=== PATIENT | female | born 1950 | race Caucasian/White ===

== ENCOUNTER → 2018-12-27 | Outpatient (CLI) | payer MEDICARE ==
[~2018-12-27] MED LIST: ASCO500T8 PO; ASPI-650 PO; LEVO88TA4 PO; METO10TA2 PO; OMEP-110 PO; SILYMARIN PO; TRAM50TA2 PO; VITAMIN D3
== END | disposition home or self-care (01) ==
LOC: STAR 09:41
PROVIDERS: ATTEND Thoracic Surgery (Cardiothoracic Vascular Surgery)
DX: Z01.818 Encounter for other preprocedural examination (principal)
CPT/HCPCS: 93005

== ENCOUNTER 2019-01-02 12:16 | Inpatient (IN) | payer MEDICARE ==
[~2019-01-02] VITALS: Ht 152.4 cm; Wt 86.5 kg
[~2019-01-02 12:16] MED LIST changes: +BUPIVACAINE/PF-EPI 0.5% 1:200K ONE
[2019-01-02] MEDS ORDERED: LACTATED RINGERS 1,000 ML IV SCH (12:44)
[2019-01-02] MEDS ORDERED: ROCURONIUM 10MG/ML,5ML ONE (13:40)
[2019-01-02] MEDS ORDERED: CEFAZOLIN 1,000 MG ONE (13:40)
[2019-01-02] MEDS ORDERED: ONDANSETRON 2MG/ML, 2ML ONE (13:40)
[2019-01-02] MEDS ORDERED: MIDAZOLAM 1 MG/ML, 2ML ONE (13:40)
[2019-01-02] MEDS ORDERED: NEOSTIGMINE 1 MG/ML, 10ML ONE (13:40)
[2019-01-02] MEDS ORDERED: PROPOFOL 10 MG/ML, 20ML ONE (13:40)
[2019-01-02] MEDS ORDERED: FENTANYL PF 250 MCG/5ML ONE (13:40)
[2019-01-02] MEDS ORDERED: SUCCINYLCHOLINE 20 MG/ML, 10ML ONE (13:40)
[2019-01-02] MEDS ORDERED: DEXAMETHASONE 4 MG/ML, 1ML ONE (13:40)
[2019-01-02] MEDS ORDERED: GLYCOPYRROLATE 0.2MG/1ML, 5ML ONE (14:35)
[2019-01-02] MEDS ORDERED: hydrALAzine 20 MG/ML, 1ML ONE (14:56)
[2019-01-02] MEDS ORDERED: LABETALOL 5MG/ML, 20ML IV PRN (15:00)
[2019-01-02] MEDS ORDERED: LORazepam 2 MG/ML, 1ML IVPush PRN (15:00)
[2019-01-02] MEDS ORDERED: FENTANYL PF 100 MCG/2ML IV PRN (15:00)
[2019-01-02] MEDS ORDERED: PROMETHAZINE 25 MG/ML, 1ML IV PRN (15:00)
[2019-01-02] MEDS ORDERED: ONDANSETRON ODT 8 MG PO PRN (15:00)
[2019-01-02] MEDS ORDERED: OXYcodone 5 MG/5 ML ORAL.SOL UDC PO PRN (15:00)
[2019-01-02] MEDS ORDERED: hydrALAzine 20 MG/ML, 1ML IV PRN ×2 (15:00→16:00)
[2019-01-02] MEDS ORDERED: MEPERIDINE/PF 25MG/0.5ML IVPush PRN (15:00)
[2019-01-02] MEDS ORDERED: ACETAMINOPHEN 325 MG TABLET PO PRN (15:00)
[2019-01-02] MEDS ORDERED: ONDANSETRON 2MG/ML, 2ML IV PRN (15:00)
[2019-01-02] MEDS ORDERED: OXYcodone 5 MG/5 ML ORAL.SOL UDC ONE (15:40)
[2019-01-02] MEDS ORDERED: FENTANYL PF 100 MCG/2ML ONE (15:40)
[2019-01-02] MEDS: HYDROmorphone 2 MG/ML, 1ML IVPush PRN ×2 (15:44→16:06)
[2019-01-02] MEDS ORDERED: morphine SULFATE 10 MG/ML, 1ML IV PRN (16:00)
[2019-01-02] MEDS ORDERED: DIPHENHYDRAMINE 25 MG CAPSULE PO PRN (16:00)
[2019-01-02] MEDS ORDERED: ONDANSETRON 2MG/ML, 2ML IVPush PRN (16:00)
[2019-01-02] MEDS ORDERED: ENALAPRILAT 1.25 MG/ML, 2ML IV PRN (16:00)
[2019-01-02] MEDS ORDERED: HYDROcodone/APAP 5/325 TABLET PO PRN (16:00)
[2019-01-02] MEDS ORDERED: DIPHENHYDRAMINE 50 MG/ML, 1ML IV PRN (16:00)
[2019-01-02] MEDS ORDERED: LORazepam 1MG TABLET PO PRN (16:00)
[2019-01-02] MEDS ORDERED: PROMETHAZINE 12.5 MG SUPP PR PRN (16:00)
[2019-01-02] MEDS ORDERED: PROMETHAZINE 25 MG/ML, 1ML IM PRN (16:00)
[2019-01-02] MEDS ORDERED: LORazepam 2 MG/ML, 1ML IV PRN (16:00)
[2019-01-02] MEDS: LACTATED RINGERS 1,000 ML IV SCH (20:31)
[2019-01-02] MEDS: ACETAMINOPHEN 650 MG/20.3 ML UDC PO PRN (20:31)
[2019-01-02 21:50] VITALS: BP 118/77
[2019-01-03 00:44] VITALS: BP 126/79
[2019-01-03] MEDS: ACETAMINOPHEN 650 MG/20.3 ML UDC PO PRN (02:40)
[2019-01-03] MEDS: LACTATED RINGERS 1,000 ML IV SCH (05:00)
[2019-01-03 05:06] VITALS: BP 126/75
[2019-01-03] MEDS ORDERED: OMEPRAZOLE 20 MG CAPSULE.DR PO SCH (06:00)
[2019-01-03 07:56] VITALS: BP 121/73
[2019-01-03] MEDS ORDERED: LEVOTHYROXINE 88 MCG TABLET PO SCH (09:00)
[2019-01-03] MEDS ORDERED: HYDR-3240 PO (09:52)
== END 2019-01-03 10:45 | disposition home or self-care (01) | DRG 357 ==
LOC: OUT 12:16 → EDSTATUS 15:00 → 4NOR 17:10 → OUT 19:26 → 4NOR 19:27 → DCLOUNGE 01-03 10:37
PROVIDERS: ADMIT Thoracic Surgery (Cardiothoracic Vascular Surgery); ATTEND Thoracic Surgery (Cardiothoracic Vascular Surgery)
PROC: 0FT44ZZ Resection of Gallbladder, Percutaneous Endoscopic Approach (ICD-10-PCS; 2019-01-02)
PROC: 0DP64CZ Removal of Extraluminal Device from Stomach, Percutaneous Endoscopic Approach (ICD-10-PCS; principal; 2019-01-02 15:00)
DX: K95.09 Other complications of gastric band procedure (principal); K80.10 Calculus of gallbladder with chronic cholecystitis without obstruction; E44.0 Moderate protein-calorie malnutrition; E66.01 Morbid (severe) obesity due to excess calories; K31.84 Gastroparesis; Y83.1 Surgical operation with implant of artificial internal device as the cause of abnormal reaction of the patient, or of later complication, without mention of misadventure at the time of the procedure; K21.9 Gastro-esophageal reflux disease without esophagitis; Z68.37 Body mass index [BMI] 37.0-37.9, adult
CPT/HCPCS: 88304; G0378; J0690; J1100; J1170; J2250; J2405; J2704; J2710; J3010; J3490; J0330; J0360; J7120